=== PATIENT | male | born 1960 | race Caucasian/White ===

== ENCOUNTER 2016-05-13 10:59 | Emergency (ER) | payer OTHER ==
[2016-05-13 11:56] LABS: BASO % 0.1 % (0.2-1.2); EOS # 0.1 10_X3_uL (0.0-0.5); EOS % 0.6 % (0.8-7.0); GRAN # 7.3 10_X3_uL (1.8-5.4); GRAN % 82.1 % (34.0-67.9); HEMATOCRIT 49.2 % (40-51); HEMOGLOBIN 16.6 g/dL (13.7-17.5); LYMPH # 0.8 10_X3_uL (1.3-3.6); LYMPH % 8.7 % (21.8-53.1); MEAN CORPUSCULAR HEMOGLOBIN 32.2 pg (27.0-33.0); MEAN CORPUSCULAR HGB CONC 33.7 g/dL (32.0-36.0); MEAN CORPUSCULAR VOLUME 95.5 fL (79-92); MEAN PLATELET VOLUME 11.5 fl (7.5-11.5); MONO # 0.8 10_X3_uL (0.3-0.8); MONO % 8.5 % (5.3-12.2); PLATELET COUNT 206 x10_3/uL (163-337); RED BLOOD COUNT 5.15 x10_6/uL (4.6-6.1); RED CELL DISTRIBUTION WIDTH 13.5 % (11.6-14.4); WHITE BLOOD COUNT 8.8 x10_3/uL (4.2-9.1)
[2016-05-13 12:19] LABS: ALBUMIN 3.4 gm/dL (3.4-5.0); ALKALINE PHOSPHATASE 125 U/L (50-136); ALT/SGPT 28 U/L (7.53-40.17); AST/SGOT 27 U/L (6.66-35.34); BILIRUBIN,TOTAL 0.28 mg/dL (0.0-1.0); BLOOD UREA NITROGEN 8 mg/dL (7-18); CALCIUM 8.3 mg/dL (8.7-10.7); CARBON DIOXIDE 27 mmol/L (21-32); CREATININE 0.8 mg/dL (0.6-1.3); GLUCOSE,RANDOM 232 mg/dL (70-99); POTASSIUM 4.6 mmol/L (3.5-5.1); SODIUM 138 mmol/L (136-145); TOTAL PROTEIN 7.2 gm/dL (6.4-8.2)
== END 2016-05-13 14:06 | disposition home or self-care (01) ==
LOC: ER 10:59
PROVIDERS: General Practice
DX: E11.65 Type 2 diabetes mellitus with hyperglycemia (principal); G89.29 Other chronic pain; M54.5 Low back pain; M48.06 Spinal stenosis, lumbar region; M51.26 Other intervertebral disc displacement, lumbar region; Z87.81 Personal history of (healed) traumatic fracture; I10 Essential (primary) hypertension; K21.9 Gastro-esophageal reflux disease without esophagitis; Z79.899 Other long term (current) drug therapy; F17.210 Nicotine dependence, cigarettes, uncomplicated; Z79.4 Long term (current) use of insulin
CPT/HCPCS: 36415; 72131; 80053; 85025; 96372; 99283-25; J1170

== ENCOUNTER 2016-06-09 12:29 | Emergency (ER) | payer OTHER | END 2016-06-09 15:18 | disposition home or self-care (01) | LOC: ER 12:29 | DX: M75.82 Other shoulder lesions, left shoulder (principal); M25.512 Pain in left shoulder; M54.6 Pain in thoracic spine; X50.3XXA Overexertion from repetitive movements, initial encounter; Y93.H1 Activity, digging, shoveling and raking; Y92.007 Garden or yard of unspecified non-institutional (private) residence as the place of occurrence of the external cause; E11.9 Type 2 diabetes mellitus without complications; Z86.19 Personal history of other infectious and parasitic diseases; I10 Essential (primary) hypertension; J44.9 Chronic obstructive pulmonary disease, unspecified; K21.9 Gastro-esophageal reflux disease without esophagitis; G89.29 Other chronic pain; M54.9 Dorsalgia, unspecified; F17.210 Nicotine dependence, cigarettes, uncomplicated; Z79.899 Other long term (current) drug therapy | CPT/HCPCS: 73030; 93005; 99283-25 ==